=== PATIENT | female | born 1935 | race Caucasian/White ===

== ENCOUNTER 2018-12-10 04:47 | Inpatient (IN) ==
--- NOTE | 2018-12-07 15:07 | Anesthesiology Consultation ---
Date of Service December 07, 2018 Assessment & Plan Chart Review Chart Review: Acceptable Risk for Surgery and Patient NOT seen in Pre Admission Testing Patient was previously seen in August in preparation for this surgery, but it was delayed due to surgeon not being available. Surgery is now rescheduled with Dr. Menon and nothing has changed re: patients health. On December 02, patients PCP again cleared her for surgery. Consults Requested medical Per note sent from patients PCP (Dr. Moody) on 12/02, patient "is medically stable for the planned surgery and anesthesia scheduled for November,." Teaching & Discussion Medication instructions were previously done in August. History Surgery Operation Date: 11/19/18 09:15 Proposed Procedures p Left Total Knee Arthroplasty - Min Harrell MD Operation Date: 12/10/18 09:30 Proposed Procedures p Left Total Knee Arthroplasty - James Menon DO Height/Weight Height: 5 ft 2 in Weight: 72.2 kg Allergies Allergy/AdvReac Type Severity Reaction Status Date / Time gabapentin AdvReac Unknown soreness Verified 08/28/18 11:23 all over body prednisone AdvReac Unknown vomit Verified 08/28/18 11:22 Medications Home Medications Medication Instructions Recorded Confirmed Last Taken acetaminophen [Tylenol Extra 500 mg PO UD PRN 08/28/18 08/28/18 Unknown Strength] ascorbic acid (vitamin C) [Vitamin 1 g PO DAILY 08/28/18 08/28/18 Unknown C] aspirin [Aspir-81] 81 mg PO QAM 08/28/18 08/28/18 08/28/18 hydrochlorothiazide 25 mg PO QAM 08/28/18 08/28/18 08/28/18 losartan 50 mg PO QAM 08/28/18 08/28/18 08/28/18 mv-mn-folic ac-vit K-herb 289 1 tab PO DAILY 08/28/18 08/28/18 Unknown [Alive Once Daily Women 50 Plus] omega 1-vbv-kpo-fish oil [Fish Oil] 1 dose PO DAILY 08/28/18 08/28/18 Unknown tramadol 50 mg PO UD PRN 08/28/18 08/28/18 Unknown Past Medical History Medical History Acid reflux OCCASIONAL/NO MEDS FOR Hyperlipidemia Hypertension Stress incontinence Swelling of both hands INTERMITTENT Exercise / Class Metabolic Activity II 4-5 Yardwork/Stairs/Walk up hill (Able to walk up FOS without CP or SOB. Does have to do stairs slowly due to knee pain though. Cares for a 89 year old woman with dementia. ) Past Family History Family History Son Family history of lung cancer Past Surgical History Surgical History History of appendectomy History of carpal tunnel release of both wrists History of colonoscopy History of hysterectomy History of total right knee replacement Past Anesthesia History No Hx of Anesthesia Complications and No Family Hx of Anesthesia Complications History of PONV No Hx of PONV and No Hx of Motion Sickness Social History Smoking Status: Never smoker Do You Dip or Chew Tobacco: No Hx Alcohol Use: No substance use type: does not use Testing Laboratory Results [facility] [place] 11/19/18 WBC: 5.00 H/H: 12.3/38.9 PLATELETS: 326 SODIUM: 139 POTASSIUM: 3.7 CHLORIDE: 103 CO2: 28 BUN: 32 H CREATININE: 1.09 GLUCOSE: 83 PT: 10.3 INR: 1.0 UA: NEGATIVE HgBA1C: 5.5 Electrocardiogram Date: 09/02/18 Findings: + NSR @ (85) and + no change from (11/18/12) Chest X-Ray Date: 09/02/18 Findings: + NAD
--- NOTE | 2018-12-09 20:11 | History & Physical Report ---
Date of Service December 09, 2018 Assessment & Plan (1) Degenerative joint disease of left knee: I have indicated the patient for left total knee replacement. The risks, benefits and complications of surgery were explained to the patient which include but not limited to infection, acute blood loss, DVT/PE, injury to nerves, vessels, bone, soft tissue, arthrofibrosis, chronic pain, failure of the prosthesis, knee dislocation, leg length discrepancy, need for additional surgery, cardiac and pulmonary events and . The patient wished to proceed with surgery and informed consent was obtained at this time. We will plan for 81mg ASA BID post-operatively for DVT prophylaxis. Upon discharge the patient will be discharged home with home health services. Appropriate clearances by PCP were obtained. History of Present Illness Chief Complaint: Left knee pain/djd Primary Care Provider: Davida Moody The patient is a 83 year old female who presents with complaints of severe left knee pain and DJD. The patient has failed outpatient conservative treatments to this point which included NSAIDs, corticosteroid injections, PT and a home exercise/walking program. The patient's pain and limited function have progressed to the point where they severely hinder their activities of daily living and they no longer tolerate exercise programs. They are requesting to proceed with total knee replacement surgery. Allergies Allergy/AdvReac Type Severity Reaction Status Date / Time gabapentin AdvReac Unknown soreness Verified 12/10/18 05:34 all over body prednisone AdvReac Unknown vomit Verified 12/10/18 05:34 amoxicillin AdvReac Nausea Verified 12/10/18 05:34 Home Medications Home Medications Medication Instructions Recorded Confirmed Type acetaminophen [Tylenol Extra 500 mg PO UD PRN 08/28/18 12/10/18 History Strength] aspirin [Aspir-81] 162 mg PO QAM 08/28/18 12/10/18 History hydrochlorothiazide 25 mg PO QAM 08/28/18 12/10/18 History losartan 50 mg PO QAM 08/28/18 12/10/18 History mv-mn-folic ac-vit K-herb 289 1 tab PO DAILY 08/28/18 12/10/18 History [Alive Once Daily Women 50 Plus] omega 1-zwr-oyq-fish oil [Fish Oil] 1 dose PO DAILY 08/28/18 12/10/18 History tramadol 50 mg PO UD PRN 03/29/19 07/11/19 History Past Med/Surg History Medical History Acid reflux OCCASIONAL/NO MEDS FOR History of tooth extraction Hyperlipidemia Hypertension Stress incontinence Swelling of both hands INTERMITTENT Surgical History History of appendectomy History of carpal tunnel release of both wrists History of colonoscopy History of hysterectomy LARRY WITH BSO History of total right knee replacement Family History Son Family history of lung cancer Social History Preferred Language: Syriac Communication Ability: Effective Career And Guidance Counselor Required: No Beliefs That Will Affect Care: None Current Living Situation: Alone Other Information That Helps Us Care for You: No Feels Safe at Home: Yes Safety Concerns: Feels Safe At This Time Smoking Status: Never smoker Do You Dip or Chew Tobacco: No Second Hand Exposure: No Tobacco Cessation Education Requested by Patient: No Hx Alcohol Use: No Hx Substance Use: No Review of Systems Review of Systems: All systems reviewed & are unremarkable except as noted in HPI & below Constitutional: as per Subjective / HPI Physical Exam Physical Exam: LLE NVSI +EHL/FHL/TA/GS SILT grossly, +2 DP pulse, compartments soft NT, limited painful ROM 0-125, + crepitus. Constitutional: WD/WN, vitals as above Eyes: PERRL, conjunctivae normal, anicteric sclerae ENMT: external ear and nose normal, oropharynx normal Neck: trachea midline, no thyromegaly Respiratory: normal respiratory effort, lungs clear to auscultation Cardiovascular: RRR, no murmur, no edema Gastrointestinal (Abdomen): normal bowel sounds, soft, nontender, no hepatosplenomegaly Musculoskeletal: no cyanosis or clubbing, extremities motor strength 5/5 Skin: no rashes, warm and dry Neurologic: patellar DTR's 2+ bilat, sensation intact Psychiatric: A+Ox3, euthymic affect Lymphatic: no cervical or axillary lymphadenopathy Results & Data Diagnostic Findings Multiple views of the knee demonstrates severe tricompartmental DJD with complete loss of the lateral and patellofemoral joint space. +osteophytes, +sclerosis, +subchondral cysts.
[2018-12-10] MEDS ORDERED: METOCLOPRAMIDE HCL 10 MG TABLET PO SCH (06:00)
[2018-12-10] MEDS ORDERED: LR 500ML BOLUS IV SCH (06:00)
[2018-12-10] MEDS ORDERED: GABAPENTIN 300 MG CAP PO SCH (06:00)
[2018-12-10] MEDS ORDERED: dexAMETHasone 4 MG TAB PO SCH (06:00)
[2018-12-10] MEDS ORDERED: ROPIVACAINE 0.5% HCL/PF 150 MG, BUPIVACAINE 0.5% MPF 30 ML, EPINEPHrine 30MG/30ML (OR U... INSTIL SCH (06:00)
[2018-12-10] MEDS ORDERED: CEFAZOLIN 1000MG 1,000 MG/7.5 ML SYR IV SCH (06:00)
[2018-12-10] MEDS ORDERED: ACETAMINOPHEN 500 MG TAB PO SCH (06:00)
[2018-12-10] MEDS ORDERED: TRANEXAMIC ACID 1,000 MG **IV Pre-op IV SCH (06:00)
[2018-12-10] MEDS ORDERED: FAMOTIDINE 20 MG TAB PO SCH (06:00)
[2018-12-10] MEDS ORDERED: CeleBREX 200 MG CAP PO SCH (06:00)
[2018-12-10] MEDS ORDERED: LR 15ML/HR IV SCH (06:00)
[2018-12-10] MEDS ORDERED: BUPIVACAINE 0.5 % 5 MG/1 ML PF 10ML VIAL ONE (06:09)
[2018-12-10] MEDS ORDERED: ROPIVACAINE 0.5% 5 MG/ML 30 ML VIAL ONE (06:09)
[2018-12-10] MEDS ORDERED: TRANEXAMIC ACID 1,000 MG **IV Intra-op IV SCH (06:30)
[2018-12-10] MEDS ORDERED: ORTHO JOINT ANESTHETIC ONE (06:35)
[2018-12-10] MEDS ORDERED: BACITRACIN INJ 50,000 UNIT VIAL ONE (06:35)
[2018-12-10] MEDS ORDERED: MIDAZOLAM HCL 1 MG/ML 2ML VIAL ONE (06:41)
[2018-12-10] MEDS ORDERED: LIDOCAINE HCL 2% 2 ML VIAL/AMP(20MG/ML) INFIL ONE (06:41)
[2018-12-10] MEDS ORDERED: PROPOFOL IV EMULSION 10 MG/ML 20 ML VIAL IV ONE ×2 (06:41→08:01)
--- NOTE | 2018-12-10 06:46 | History & Physical Bridge Note ---
Date of Service December 10, 2018 History & Physical Bridge Note I have examined the patient, reviewed the History & Physical and in the interval since the performance of the History & Physical I have noted the following changes of clinical significance: no changes noted
[2018-12-10] MEDS ORDERED: ATROPINE SULFATE 0.1 MG/ML 10ML SYR IV PRN (07:54)
[2018-12-10] MEDS ORDERED: fentaNYL citrate 100 MCG/2 ML VIAL IV PRN (07:54)
[2018-12-10] MEDS ORDERED: ePHEDrine sulfate 50 MG/ML AMP IV PRN (07:54)
[2018-12-10] MEDS ORDERED: HYDROmorphone INJ 2 MG/ML SYR/VIAL IV PRN (07:54)
--- NOTE | 2018-12-10 08:25 | Post Operative Brief Note ---
Immediate Post Op Note v1 Date of Surgery December 10, 2018 Pre & Post Diagnosis Operation Date: 11/19/18 09:15 <No data on this case meets the specified criteria> Operation Date: 12/10/18 07:00 Pre-Op Diagnosis: Left Knee Degenerative Joint Disease Post-Op Diagnosis: Left Knee Degenerative Joint Disease Procedure Operation Date: 11/19/18 09:15 <No data on this case meets the specified criteria> Operation Date: 12/10/18 07:00 Actual Procedures p Left Total Knee Arthroplasty(Left) - James Menon DO Surgeon James Menon DO Commercial Center Manager Avelino Mejia Estimated Blood Loss 40 Findings Consistent with Post-Op Diagnosis Specimens tibial and femur fragments Anesthesia Type Spinal MAC Complications none Disposition Disposition: Recovery Room Overlapping Procedure I was present for: the critical portions of procedure. I was immediately available: during the entire case. Back up surgeon: was not required during procedure.
--- NOTE | 2018-12-10 08:50 | Operative Report ---
Post Operative Report Pre & Post Diagnosis Operation Date: 11/19/18 09:15 <No data on this case meets the specified criteria> Operation Date: 12/10/18 07:00 Pre-Op Diagnosis: Left Knee Degenerative Joint Disease Post-Op Diagnosis: Left Knee Degenerative Joint Disease Procedure Operation Date: 11/19/18 09:15 <No data on this case meets the specified criteria> Operation Date: 12/10/18 07:00 Actual Procedures p Left Total Knee Arthroplasty(Left) - James Menon DO Surgeon James Menon DO C[employer] Mold Printer Avelino Mejia Estimated Blood Loss 40 Findings Consistent with Post-Op Diagnosis Specimens Proximal tibia, distal femur fragments Anesthesia Type Spinal MAC Complications none Disposition Disposition: Recovery Room Indications The patient is a 83-year-old female presents with long history of severe left knee tricompartmental DJD and failed outpatient conservative treatments including NSAIDs, bracing, injections and home walking/exercise program. The patient's symptoms have progressed to the point where it has been difficult to perform normal activities of daily living. I have indicated the patient for a left total knee arthroplasty, the risks and benefits and complications of the procedure include but are not limited to infection bleeding damage to bone, nerves, vessels, surrounding soft tissue, blood clots, loss of function, leg length discrepancy, dislocation, failure of t he components, need for additional surgery and . The patient wished to proceed with surgery at this time and informed consent was obtained. Appropriate clearances were obtained. Description of Procedure COMPONENTS USED: Olivia persona knee system: Femur size 6 narrow, Tibia size D tibial articulating surface 14 CPS, Patella 29 Following induction of spinal anesthesia, a tourniquet was applied to the proximal aspect of the thigh and the patient's left leg was prepped and draped in the usual sterile manner. A timeout was performed, patient identified and site ocrrie confirmed. Appropriate pre-operative IV antibiotics were given. The limb was exsanguinated with an Esmarch bandage and tourniquet was inflated to 300 mmHg. A longitudinal midline incision was made over the anterior knee. Subcutaneous tissue was sharply dissected down to fascia. Electrocautery was used for hemostasis. Next a parapatellar arthrotomy was performed. Patella was everted and the knee was flexed. A Yusuf retractor was used to expose the synovium above on the anterior aspect of the femur and removed down to bone. Next, the anterior fat pad was removed to aid in visualization. The medial face of the tibia was cleared of soft tissue first with a Bovie and a martinez elevator. This tissue was retracted posteriorly using a blunt Hohmann. Next, the extra-medullary tibial cutting guide was placed to the anterior aspect of the tibia. The tibia resection level was set taking 2mm from the defective tibial condyle. Resection depth was once again confirmed with timo wing. The medial and lateral collateral ligament was protected with two Hohmann retractors. The tibia guide was removed and proximal tibial bone fragment removed utilizing straight osteotome, electrocautery and Loni. Next, the distal femur intramedullary canal was accessed utilizing the step drill. The intramedullary distal femur cutting guide was placed into the canal and pinned into place. The distal femur was cut on the 5 degree +0 setting. Next the cutting guide was removed and the femur was sized. Care was taken to ensure appropriate managing director all rotation and 5 degree holes were drilled. A size 6 4-in-1 cutting block was placed on the distal end of the femur and secured into place with two short headed screws. Two bent Hohmann retractors were placed to protect the medial and lateral collateral ligaments. The oscillating saw was used to cut anterior, posterior, anterior chamfer and posterior chamfer. The four and one cutting block was removed and bone fragments excised. Laminar pain coordinator was placed laterally and the ACL and PCL were removed followed by the medial meniscus and posterior medial osteophytes. Aquamantys was ut ilized for any posterior medial bleeders and Orthomix injected into the posterior medial capsule. A laminar pain coordinator was then placed in the medial compartment and the lateral meniscus and posterior osteophytes were removed. Aquamantys was utilized for any posterior lateral bleeders and Orthomix injected into the posterior lateral capsule. Next, drop rahat and spacer block were placed with the leg in flexion and extension to assess alignment and flexion/extension gaps. Next, the proximal tibia was assessed and two bent Hohmans were placed medial and lateral to aid in visualization. The appropriate tibia size and rotation was selected and a size D tibial plate was pinned into place with appropriate rotation. Preparation of the tibia was completed utilizing the matching tibial drill and broach. I then turned my attention back to the distal femur in a trial femoral component was impacted into place. Appropriate femoral width was assessed and selected. Next the femur PS box cut guide was placed and cut made with the reciprocal saw and the PS box provisional placed. A trial size 14 tibia articular tray was placed and varus-valgus balance assessed in 0 degrees of extension and 30, 60 and 90 degrees of flexion. A final tibial articular surface size 14 CPS was chosen. Assess was gained to the patella and caliper utilized to measure width. The patella reamer was utilized and remaining bone removed with oscillating saw. A size 29 patella button was selected and the patella pegs drilled. Trial patella button was placed and tracking was assessed. The knee was found to be well balanced, well aligned with excellent patella tracking. The trials were removed and final components were obtained and assembled. The knee was irrigated copiously with sterile saline solution mixed with bacitracin. Access to the proximal tibia was once again obtained utilizing to the Hohmans and the proximal tibia and distal femur were dried with lap sponges. The final components were cemented into place and all excess cement was removed. A trial tibial articular surface was placed while cemented hardened. Knee stability was once again assessed and the final component inserted. A Betadine soak was performed. After 3 minutes, the hip was once more irrigated with copious sterile saline solution with bacitracin. The knee was injected with the remaining Orthomix which includes a combination of Ropivicaine 0.5% 150mg, Bupivicaine 0.5%/Epinephrine 1:200,000 30ml, Toradol 30mg, Dexamethasone 4mg, Ketamine 10mg, Clonidine 100mcg and NSS 30ml solution. The capsulotomy was closed with #1 Vicryl followed by subcutaneous closure with 2-0 Vicryl suture. Skin closure was performed using lucas followed by silverlon and lin wrap. Tourniquet was deflated at 88 minutes. The patient tolerated the procedure well and was taken to the PACU in stable condition. Due to the complex nature of the procedure, the entire surgery was performed with the operational assistance of Avelino Mejia PA-C. The marketing administrative assistant, under direct supervision, was involved in the actual performance of all aspects of the surgical procedure including patient positioning, hemostasis, tissue ret raction, instrument management and wound closure. I attest to the content of the Intraoperative Record and any orders documented therein. Any exceptions are noted below.
--- NOTE | 2018-12-10 09:23 | XRay Report ---
XR knee LT 2V routine HISTORY: 83 years-old Female Surgical Post Op left knee total joint arthroplasty COMPARISON: Left knee radiographs 12/17/2012 TECHNIQUE: 2 views of the left knee FINDINGS: Left knee total joint arthroplasty and patella resurfacing demonstrates satisfactory alignment withou t acute fracture, or retained foreign body. Anterior midline skin lucas are noted along with expect ed postsurgical soft tissue swelling and deep tissue air with surgical drainage catheter. IMPRESSION: Left knee total joint arthroplasty and patella resurfacing with expected postoperative fi ndings. The above report was generated using voice recognition software. It may contain grammatical, syntax o r spelling errors. Electronically signed by: Hossein Oglesby M.D. 12/10/2018 9:21 AM
[2018-12-10] MEDS ORDERED: HYDROmorphone INJ 0.5 MG/0.5 ML SYR IV PRN (09:49)
[2018-12-10] MEDS ORDERED: MAGNESIUM HYDROXIDE SUSP 30 ML UDC PO PRN (09:49)
[2018-12-10] MEDS ORDERED: METOCLOPRAMIDE HCL INJ 5 MG/ML 2 ML VIAL IV PRN (09:49)
[2018-12-10] MEDS ORDERED: ONDANSETRON INJ 2 MG/ML 2 ML VIAL IV PRN (09:49)
[2018-12-10] MEDS ORDERED: BISACODYL 10 MG SUPP PR PRN (09:49)
[2018-12-10] MEDS ORDERED: NALOXONE HCL 0.4 MG/1 ML VIAL/CARP IV PRN (09:49)
--- NOTE | 2018-12-10 09:53 | Anesthesiology Progress Note ---
Date of Service December 10, 2018 Anesthesia Post Procedure Vital Signs Vital Signs: Temp Pulse Pulse Resp BP Pulse Ox 12/10/18 09:35 36.6 C 89 12 159/62 H 95 12/10/18 09:25 91 H 16 157/79 H 95 12/10/18 09:15 93 H 14 152/65 H 94 12/10/18 09:06 36.8 C 96 H 18 164/75 H 98 12/10/18 05:40 36.4 C L 90 20 185/81 H 93 Transfer of Care Handoff Completed per policy Notes Mental Status: alert / awake / arousable and participated in evaluation Patient Amnestic to Procedure: Yes Nausea / Vomiting: adequately controlled Pain: adequately controlled Airway Patency, RR, SpO2: stable & adequate BP & HR: stable & adequate Hydration State: stable & adequate Neuraxial Anesthesia: was administered and sensory block is resolving Anesthetic Complications: no major complications apparent
[2018-12-10] MEDS: hydroCHLOROthiazide 25 MG TAB PO SCH (10:45)
[2018-12-10] MEDS: LOSARTAN POTASSIUM 50 MG TAB PO SCH (10:45)
[2018-12-10] MEDS: DOCUSATE SODIUM 100 MG CAP PO SCH ×2 (10:45→20:21)
[2018-12-10] MEDS: KETOROLAC TROMETHAMINE 15 MG/ML VIAL IV SCH ×3 (10:46→22:37)
[2018-12-10] MEDS: SODIUM CHLORIDE 0.9% 1000ML 1,000 ML IV SCH ×2 (10:46→20:23)
[2018-12-10] MEDS: MULTIVITAMIN TAB PO SCH (10:46)
[2018-12-10] MEDS: CEFAZOLIN 2000MG 2,000 MG/15 ML SYR IV SCH ×2 (14:28→22:36)
--- NOTE | 2018-12-10 18:47 | Orthopedic Progress Note ---
Date of Service December 10, 2018 Assessment & Plan (1) Degenerative joint disease of left knee: s/p L TKA -ancef x 24 -DVT ppx: SCDs, TEDs, 81mg ASA BID -WBAT LLE -PT/OT -PO XR demonstrates well aligned well fixed prosthesis without fracture/dislocation -am labs -DC planning - home with HH Subjective Post Operative Progress Note Patient seen sitting up in bed, comfortable, denies complaints, pain well controlled, no acute issues. Review of Systems Review of Systems: All systems reviewed & are unremarkable except as noted in HPI & below Constitutional: as per Subjective / HPI Physical Exam Physical Exam: LLE NVSI +EHL/FHL/TA/GS SILT grossly, +2 DP pulse, compartments soft NT, dressing cdi. Constitutional: WD/WN, vitals as above Results & Data Vital Signs (Past 12 Hours) Vital Signs Temp Pulse Pulse Resp BP BP Pulse Ox 12/10/18 15:12 37.0 C 103 H 18 137/77 92 12/10/18 12:52 85 144/79 H 93 12/10/18 12:09 88 18 143/79 H 12/10/18 10:42 88 16 167/78 H 90 12/10/18 10:16 36.7 C 91 H 18 161/75 H 95 12/10/18 09:52 36.8 C 90 16 164/75 H 98 12/10/18 09:35 36.6 C 89 12 159/62 H 95 12/10/18 09:25 91 H 16 157/79 H 95 12/10/18 09:15 93 H 14 152/65 H 94 12/10/18 09:06 36.8 C 96 H 18 164/75 H 98
[2018-12-10] MEDS ORDERED: SENNA 8.6 MG TAB PO SCH (21:00)
[2018-12-10] MEDS: ACETAMINOPHEN 500 MG TAB PO SCH (22:47)
[2018-12-11] MEDS: OXYCODONE HCL IR 5 MG TAB (IMMEDIATE RELEASE) PO PRN ×2 (00:20→08:33)
[2018-12-11 03:34] VITALS: TEMP 98.6
[2018-12-11] MEDS: KETOROLAC TROMETHAMINE 15 MG/ML VIAL IV SCH (04:57)
[2018-12-11] MEDS: ACETAMINOPHEN 500 MG TAB PO SCH ×2 (04:59→14:00)
[2018-12-11 07:08] LABS: Hematocrit (blood only) 31.5 % (37-47); Hemoglobin 10.2 g/dL (12.0-16.0); Mean Corpuscular Hgb Conc 32.4 g/dL (32-36); Mean Corpuscular Volume 91.6 fL (80-100); Mean Platelet Volume 9.1 fL (7.4-10.4); Platelet Count 249 K/uL (130-400); RDW Coefficient of Variation 13.2 % (11.5-14.5); RDW Standard Deviation 44.1 fL (36.4-46.3); Red Blood Count 3.44 M/uL (4.2-5.4); White Blood Count 13.97 K/uL (4.8-10.8)
--- NOTE | 2018-12-11 07:28 | Orthopedic Progress Note ---
Date of Service December 11, 2018 Assessment & Plan (1) Degenerative joint disease of left knee: s/p L TKA POD#1 -ancef x 24 -DVT ppx: SCDs, TEDs, 81mg ASA BID -WBAT LLE -PT/OT -PO XR demonstrates well aligned well fixed prosthesis without fracture/dislocation -am labs - hgb 10.2 -DC planning - home with HH Subjective Post Operative Progress Note Patient seen sitting up in bed, comfortable, denies complaints, pain well controlled, no acute issues. Review of Systems Review of Systems: All systems reviewed & are unremarkable except as noted in HPI & below Constitutional: as per Subjective / HPI Physical Exam Physical Exam: LLE NVSI +EHL/FHL/TA/GS SILT grossly, +2 DP pulse, compartments soft NT, dressing cdi. Constitutional: WD/WN, vitals as above Results & Data Vital Signs (Past 12 Hours) Vital Signs Temp Pulse Resp BP BP Pulse Ox 12/11/18 03:31 37.0 C 93 H 18 128/62 97 12/10/18 23:16 37.1 C 95 H 17 139/70 91 12/10/18 19:33 37.3 C 95 H 17 149/81 H 95
[2018-12-11 07:34] VITALS: PULSE 94; O2SAT 96
[2018-12-11 07:42] LABS: BUN Creatinine Ratio 26.3 (10-20); Calcium 8.5 mg/dl (8.5-10.1); Creatinine Clr Calc Pharmacy 32.1 ml/min; Est GFR (African American) 46.7; Est GFR (Non-African American) 40.3; Potassium 2.9 mmol/L (3.5-5.1)
[2018-12-11] MEDS: hydroCHLOROthiazide 25 MG TAB PO SCH (08:28)
[2018-12-11] MEDS: MULTIVITAMIN TAB PO SCH (08:28)
[2018-12-11] MEDS: LOSARTAN POTASSIUM 50 MG TAB PO SCH (08:28)
[2018-12-11] MEDS: DOCUSATE SODIUM 100 MG CAP PO SCH (08:28)
[2018-12-11] MEDS ORDERED: POTASSIUM CHLORIDE 20 MEQ TABCR PO STA (08:33)
[2018-12-11 08:41] VITALS: BP 128/62
[2018-12-11] MEDS ORDERED: ASPIRIN 81 MG ECTAB PO SCH (09:00)
--- NOTE | 2018-12-11 14:26 | Anesthesiology Progress Note ---
Date of Service December 11, 2018 Anesthesia Post Procedure Vital Signs Vital Signs: Temp Pulse Resp BP BP Pulse Ox 12/11/18 08:39 37.0 C 94 H 18 149/71 H 128/62 96 12/11/18 07:32 37.0 C 94 H 18 149/71 H 96 12/11/18 03:31 37.0 C 93 H 18 128/62 97 12/10/18 23:16 37.1 C 95 H 17 139/70 91 12/10/18 19:33 37.3 C 95 H 17 149/81 H 95 12/10/18 15:12 37.0 C 103 H 18 137/77 92 Notes Mental Status: alert / awake / arousable Nausea / Vomiting: adequately controlled Pain: adequately controlled Airway Patency, RR, SpO2: stable & adequate BP & HR: stable & adequate Hydration State: stable & adequate Neuraxial Anesthesia: was administered and sensory block resolved Anesthetic Complications: no major complications apparent and Pt Satisfied with anesthetic care
[2018-12-11] MEDS ORDERED: CeleBREX 200 MG CAP PO SCH (21:00)
--- NOTE | 2018-12-13 15:22 | Discharge Summary ---
Date of Service December 13, 2018 Admission HPI Per Admitting Provider The patient is a 83 year old female who presents with complaints of severe left knee pain and DJD. The patient has failed outpatient conservative treatments to this point which included NSAIDs, corticosteroid injections, PT and a home exercise/walking program. The patient's pain and limited function have progressed to the point where they severely hinder their activities of daily living and they no longer tolerate exercise programs. They are requesting to proceed with total knee replacement surgery. Principal Diagnosis Left total knee replacement Discharge Exam LLE NVSI +EHL/FHL/TA/GS SILT grossly, +2 DP pulse, compartments soft NT, dressing cdi. Constitutional WD/WN, vitals as above Discharge Data Allergies Allergy/AdvReac Type Severity Reaction Status Date / Time gabapentin AdvReac Unknown soreness Verified 12/10/18 05:34 all over body prednisone AdvReac Unknown vomit Verified 12/10/18 05:34 amoxicillin AdvReac Nausea Verified 12/10/18 05:34 Consultations 12/10/18 09:49 Consult Case Management - Discharge Planning Routine Procedures Performed Operation Date: 11/19/18 09:15 <No data on this case meets the specified criteria> Operation Date: 12/10/18 07:00 Actual Procedures p Left Total Knee Arthroplasty(Left) - James Menon DO Ordered Studies 12/10/18 05:00 US - OR guided needle placemen Routine Hospital Course (1) Degenerative joint disease of left knee: The patient is a 83 -year-old female who presents with long standing history of severe left knee DJD and failed outpatient conservative treatments including NSAIDs, bracing, injections and home walking/exercise program. The patient's symptoms have progressed to the point where it has been difficult to perform even normal activities of daily living. I indicated the patient for a left total knee arthroplasty, the risks, benefits and complications of the procedure include but not limited to infection, bleeding, damage to bone, nerves, vessels, surrounding soft tissue, may develop blood clots, loss of function, leg length discrepancy, dislocation, failure of the components, loosening of the components, the need for additional surgery and . The patient wished to proceed with surgery at this time and informed consent was obtained. Hospital Course: On 12/10/18 the patient was taken to the operating room, adequate anesthesia administered and underwent a left total knee arthroplasty. The patient tolerated the procedure well and was taken to the PACU in stable condition. Post-operatively the patient was started on a DVT ppx medication and given appropriate IV antibiotics. Consults were placed to physical therapy, occupational therapy and case management. On POD#1, the patient did well overnight and their pain was well controlled. Labs were drawn and the Hgb was 10.2. K was shown to be decreased to 2.9. The patient was given 40meq of PO potassium. Rx for repeat labs was ordered within 1 week and the patient scheduled to follow up with their PCP. The patient progressed well with PT. Dressings were changed at this time and the incision was clean, dry and intact. The patients hospital stay was relatively uneventful and they were deemed stable by the orthopedic team and consultants to be discharged home with HH on 12/11/18. Discharge Instructions: Upon discharge the patient may weight bear as tolerates through their operative extremity. They were instructed to keep the incision clean and dry at all times. The patient may shower but should not submerge the incision, avoid bathing, pools and hot tubes. The patient was given a script for pain medication and should take as instructed. The patient was given a script for DVT ppx ASA BID and should take as directed. The patient was instructed to not drive or travel for long distances until cleared to do so. If the patient develops any symptoms of fevers, chills, nausea, vomiting, increased redness, swelling, pain or drainage from the surgical site, they should notify the office and/or proceed to the nearest emergency room. The patient should follow up in 10-14 days after surgery for their routine post-operative follow-up appointment and should call the office to confirm the date and time. s/p L TKA POD#1 -ancef x 24 -DVT ppx: SCDs, TEDs, 81mg ASA BID -WBAT LLE -PT/OT -PO XR demonstrates well aligned well fixed prosthesis without fracture/dislocation -am labs - hgb 10.2 -DC planning - home with HH Total Time Total Time Spent Total Time Spent (In Minutes): 45 Total Time Includes: Examination of the Patient, Discharge Planning, Medication Reconciliation and Communication With Other Providers Discharge Plan Discharge Items Patient Disposition: Home - Home Health Services Reason For Visit: LEFT KNEE OSTEOARTHRITIS Discharge Diagnosis: Left total knee replacement Condition: Good Discharge Goals: Decrease discomfort, Improve function, Increase independence, Improve nutritional status and Therapeutic intervention Activity: Per 'Additional Instructions' section Lifting: Wait until after follow-up appointment Bathing Comment: No bathing, pools or hot tubs Sexual Activity: Wait until after follow-up appointment Exercise/Sports: Wait until after follow-up appointment Driving/Machine Use Comment: No driving till cleared by your surgeon Weightbearing: Left weightbearing Non-emergency contact: Primary Care Provider and Surgeon Call non-emergency contact if: you have any medication questions, your symptoms worsen, your pain is not controlled, your pain is worsening, your pain is unusual for you, your pain is concerning for you, you have a fever, your temperature is above 101, your wound has increased redness, your wound has increased drainage and your wound pain has increased Follow-up/Referrals: Davida Moody [Primary Care Provider] - Diet: Regular Addtl Provider Instructions: ACTIVITY RECOMMENDATIONS: SELF CARE INSTRUCTIONS AFTER TOTAL KNEE REPLACEMENT A. You may need to continue a physical therapy program after discharge from the hospital. There are several options available to you. Your doctor will assist you in selecting the best one for you. 1. An out-patient facility 2 to 3 times a week for therapy or home therapy. 2. Continue working on all exercises taught to you in the hospital. Your goals should be to increase bending of your knee to 90 degrees and beyond and to fully straighten your knee. B. You may progress at your own pace from walking with a walker or crutches to a cane; then to no assistive devices. C. Make walking a part of your daily routine. Be up as much as comfortable with rest periods throughout the day. Rest with leg elevation is very important. Use the ice wrap frequently for the first 3-4 weeks. D. There are no restrictions on activities. You may ride in a car, shop, participate in safety specialist and all social activities. E. Wear the long elastic stockings (SHAYE hose) 20 hours a day for 2 weeks after surgery. They can be removed several times a day for laundering and for a bath. F. You may shower, no tub baths until cleared by your doctor. SPECIAL CARE INSTRUCTIONS: VERY IMPORTANT TO READ AND REVIEW A. There are a few signs you need to watch for after you are home. Call [facility] if you notice any of the followin. Increased severe knee pain. Some pain is expected especially when you exercise. 2. Increased swelling in your leg or knee; pain or swelling of the calf muscle in either lower leg. 3. Any fluid drainage from the incision. 4. Shortness of breath or chest pain. B. Please call [facility] at if you have any concerns or questions about your operation or recovery. The doctor or his nurse will return your call promptly. C. You must take antibiotics before dental work, bladder, bowel or other surgery. Your doctor will provide you with a permanent care to carry describing this precaution. IMPORTANT: * REMEMBER TO TAKE ASPIRIN, 81 MG, TWICE DAILY FOR 4 WEEKS UNLESS OTHERWISE DIRECTED. THIS IS YOUR BLOOD THINNER. * HIGH RISK PATIENTS MAY BE PRESCRIBED A STRONGER BLOOD THINNER. THIS WILL BE PROVIDED AT DISCHARGE. * CALL IF INCREASED PAIN, REDNESS, DRAINAGE OR FEVER GREATER THAT 101. * WEAR SHAYE HOSE 20 HOURS PER DAY FOR 2 WEEKS. * YOU MAY HAVE A LARGE BAND-AID LIKE DRESSING (SILVERON). THIS WILL REMAIN ON YOUR INCISION FOR 7 DAYS, THEN CAN BE REMOVED. IF INCISION IS LEAKING THROUGH DRESSING, CALL THE OFFICE . FOLLOW UP VISIT: If appointment is not already scheduled: Please call [facility] to make a follow-up appointment for 2 weeks after your surgery at . Please follow up with your Primary Care Provider in 1 week. Prescriptions: New aspirin [Ecotrin Low Strength] 81 mg Tablet,Delayed Release (Dr/Ec) 81 mg PO BID 28 Days Qty: 56 RF: 0 celecoxib [Celebrex] 200 mg Capsule 200 mg PO BID PRN (Reason: pain) Qty: 28 RF: 0 oxycodone 5 mg Tablet 5 mg PO Q6H MDD 6 tabs PRN (Reason: pain) Qty: 30 RF: 0 sennosides [Senokot] 8.6 mg Tablet 17.2 mg PO HS PRN (Reason: constipation) Qty: 28 RF: 0 acetaminophen [Tylenol Extra Strength] 500 mg Tablet 1,000 mg PO Q8 PRN (Reason: fever or pain) Qty: 90 RF: 0 Continued losartan 50 mg Tablet 50 mg PO QAM RF: 0 hydrochlorothiazide 25 mg Tablet 25 mg PO QAM RF: 0 Alive Once Daily Women 50 Plus 800-100 mcg Tablet 1 tab PO DAILY RF: 0 Discontinued aspirin [Aspir-81] 81 mg Tablet,Delayed Release (Dr/Ec) 162 mg PO QAM RF: 0 tramadol 50 mg Tablet 50 mg PO UD PRN (Reason: Pain) RF: 0 acetaminophen [Tylenol Extra Strength] 500 mg Tablet 500 mg PO UD PRN (Reason: Pain) RF: 0 omega 8-iik-zhd-fish oil [Fish Oil] 1,000 mg (120 mg-180 mg) Capsule 1 dose PO DAILY RF: 0 Stand-Alone Forms: [facility], [facility]/Other Patient Handouts: Surgery Prevent DVT After, Replacement Knee Home After Discharge Orders: Discharge Order (Routine); Ordered 12/11/18 Ordered By: James Menon Admission Data Admit Date/Time: 12/10/18 09:11 Attending Provider: James Menon Admit Provider: James Menon Primary Care Provider: Davida Moody Other Providers: Min Harrell,[facility]: Surgical Services Other Interventions: Discharge Summary Assessment (RN) Last Done: 12/11/18 08:39 DC Date/Time DO NOT enter until pt leaves facility: 12/11/18 15:15
== END 2018-12-11 15:15 | disposition home health service (06) | DRG 470 ==
LOC: ASU 04:47 → 3E 09:11
DX: E78.5 Hyperlipidemia, unspecified; Z90.710 Acquired absence of both cervix and uterus; Z96.651 Presence of right artificial knee joint; M17.12 Unilateral primary osteoarthritis, left knee; I10 Essential (primary) hypertension; E87.6 Hypokalemia; Z80.1 Family history of malignant neoplasm of trachea, bronchus and lung